=== PATIENT | female | born 1970 | race Caucasian/White ===

== ENCOUNTER 2022-01-03 00:45 | Observation (INO) | payer MEDICAID ==
[2022-01-03] MEDS ORDERED: Sodium Chloride 0.9% 10 ML Syringe FLUSH PRN (01:01)
[2022-01-03] MEDS ORDERED: Iopamidol 755 Mg/ML 100 ML Bottle ONE (01:05)
[2022-01-03 01:20] LABS: CHLORIDE,CL 100 mmol/L (98-107); SODIUM,NA 136 mmol/L (136-145)
[2022-01-03 01:21] LABS: ANION GAP 14.8 mmol/L (5-15); ESTIMATED GFR 106 mL/min (>=60)
[2022-01-03] MEDS ORDERED: LORazepam 2 MG/ML SDV ONE (02:00)
[2022-01-03] MEDS ORDERED: Metoprolol Tartrate 5 MG/5 ML SDV ONE (04:29)
[2022-01-03] MEDS ORDERED: Metoprolol Tartrate 50 MG Tab ONE ×2 (05:10→10:00)
[2022-01-27 11:53] LABS: BARBITURATE SCREEN,URINE POSITIVE (NEGATIVE); BENZODIAZEPINES SCREEN,URINE POSITIVE (NEGATIVE)
[2022-01-27 11:54] LABS: BUPRENORPHINE SCREEN,URINE NEGATIVE (NEGATIVE); METHAMPHETAMINE SCREEN, URINE NEGATIVE (NEGATIVE); THC SCREEN,URINE 50 NG/ML NEGATIVE (NEGATIVE)
== END 2022-01-03 15:50 | disposition home or self-care (01) ==
LOC: VM.ED 00:45 → VM.ZCENSUS 05:30
PROVIDERS: ADMIT Physician Assistant; ATTEND Physician Assistant
DX: I47.1 Supraventricular tachycardia (principal); I10 Essential (primary) hypertension; E11.9 Type 2 diabetes mellitus without complications; F41.9 Anxiety disorder, unspecified; E78.5 Hyperlipidemia, unspecified; G43.909 Migraine, unspecified, not intractable, without status migrainosus; F32.A Depression, unspecified; K21.9 Gastro-esophageal reflux disease without esophagitis; Z79.899 Other long term (current) drug therapy; Z88.0 Allergy status to penicillin; Z88.5 Allergy status to narcotic agent; Z88.1 Allergy status to other antibiotic agents; Z79.84 Long term (current) use of oral hypoglycemic drugs
CPT/HCPCS: 36415; 70450; 70496; 70498; 80053; 80305-QW; 80307; 81003; 82947; 83735; 84100; 84484; 85025; 93005; A9270-GY; J2060; J3490; Q9967